=== PATIENT | female | born 1970 | race Caucasian/White ===

== ENCOUNTER → 2018-03-30 10:42 | Outpatient (CLI) | payer OTHER, SELFPAY ==
--- NOTE | 2018-03-30 | OV.WND_ITS ---
Progress Note Details Patient Name: Marcela Zamorano Patient Number: [id number] PatientPatientDate: 03/30/2018 Clinician: Lila Forman Physician / Sample Display Preparer: Osmany Virk SUBJECTIVE Chief Complaint This information was obtained from the patient Allergies MSG, eggplant HPI This information was obtained from the patient 03/30/18. Seen by Dr. Virk. The patient's new to our clinic and presents with a non-healing left lower leg wound that she states started without trauma and subsequently became infected and increased in size. She feels it's been improving however since starting on dicloxacillin but notes there's still some pain. Family History This information was obtained from the patient Diabetes - Maternal Grandparents, Heart Disease - Father, Hypertension - Father , Mental Illness - Paternal Grandparents, Stroke - Maternal Grandparents, Father, Paternal Grandparents Social History This information was obtained from the patient Alcohol Use - Rarely, Children - 2, Financial Concerns, Lives in - private, Marital Status - , Occupation - disabled, Tobacco Use - Cigarrettes 1/4 ppd Past Medical History This information was obtained from the patient Patient has a medical history of: Cardiomyopathy Congestive Heart Failure Lyme disease Neuropathy DJD Surgical History This information was obtained from the patient Patient has a surgical history of: ICD Placed Left meniscus repair Complaints and Symptoms This information was obtained from the patient Patient complains of: General Notes: I have reviewed and concur with the Review of Systems and Past Family Social History documents completed by the clinician, I have reviewed and concur with the Wound Assessment document completed by the clinician Integumentary (Hair/Skin/Nails): Open Sore Prior Wound History: Drainage, Erythema, Pain Patient denies complaints or symptoms related to: Cardiovascular (Central/Peripheral): Intermittent Claudication, Lower extremity (leg) resting pain, Lower extremity (leg) swelling Constitutional Symptoms (General Health): Chills, Fever Hematologic/Lymphatic: Bleeding / Clotting Disorders, Bleeding Tendency Neurological: Loss of Protective Sensation Psychiatric: Memory Loss Respiratory: Shortness of Breath General Notes: Up to date Additional Information Does patient have a history of Cancer? Yes? Complete all questions.: No Medications carvedilol 6.25 mg tablet oral tablet oral once daily amiodarone 200 mg tablet oral tablet oral once daily lisinopril 5 mg tablet oral tablet oral once daily dicloxacillin 250 mg capsule oral capsule oral 4xday OBJECTIVE Constitutional Vital signs reviewed and noted. Well developed. Alert. Clean appearing.. Height/ Length: 68 in (172.72 cm), Weight: 187 lbs (85 kgs), BMI: 28.4, Temperature: 98.9 ?F (37.17 ?C ), Pulse: 84 bpm, Respiratory Rate: 16 breaths/min, Blood Pressure: 139/85 mmHg, Pulse Oximetry: 97 %. Ears, Nose, Mouth, and Throat: No clinically significant hearing loss on informal examination. Cardiovascular: Affected extremity exhibits no peripheral edema or cyanosis, is warm, and is well perfused. Capillary refill is less than 2 seconds. Integumentary (Hair, Skin) Mild periwound erythema with warmth. Refer to appropriate clinician wound documentation for this visit; left lower leg wound extends to subcut with base partially covered with pink granulation, remainder fibrin and slough. Wound #1 Left, Medial Ankle is an acute Full Thickness Cellulitis and has received a status of Not Healed. Initial wound encounter measurements are 1.5cm length x 1.4cm width x 0.1cm depth, with an area of 2.1 sq cm and a volume of 0.21 cubic cm. No tunneling has been noted. No sinus tract has been noted. No undermining has been noted. There is a moderate amount of serous drainage noted which has no odor. The patient reports a wound pain of level 2/10. The wound margin is attached. Wound bed has Yes epithelialization, No eschar, Yes slough, Yes bright red, pink, firm granulation. The periwound skin texture is normal. The periwound skin moisture is normal. The periwound skin color is normal. The temperature of the periwound skin is WNL. Periwound skin presents with s/s of infection. Confirmation Description and Treatment Plan is: Confirmed Local, Systemic Antibiotics Prescribed. Local Pulse is Palpable. Neurological: Cranial nerves grossly intact with symmetric function normal by informal observation.. ASSESSMENT Active Problems ICD-10 (Encounter Diagnosis) S81.802D - Unspecified open wound, left lower leg, subsequent encounter (Encounter Diagnosis) L03.116 - Cellulitis of left lower limb PROCEDURES Wound #1 Wound #1 (Cellulitis) is located on the left, medial ankle. A skin/subcutaneous tissue level surgical debridement with a total area debrided of 2.1 sq cm was performed by Osmany Virk MD. Subcutaneous was removed along with devitalized tissue: slough. The following instrument(s) were used: curette. Pain control was achieved using 4% Lido. A time out was conducted prior to the start of the procedure. A minimal amount of bleeding was controlled with n/a. The procedure was tolerated well with a pain level of 0 throughout and a pain level of 0 following the procedure. Post Debridement Measurements: 1.5cm length x 1.4cm width x 0.2cm depth; with an area of 2.1 sq cm and a volume of 0.42 cubic cm; Additional Information Muscle fascia or bone removed and sent to pathology?: No PLAN Wound Orders: Wound #1 Left, Medial Ankle Anesthetic Topical Xylocaine to wound bed. - In clinic Cleanser Cleanse Wound: - Normal saline in clinic. May use distilled water at home May Shower. - Please avoid getting tap water in wound or on dressing. Cover while in shower Topical Treatments Antibiotic/Antimicrobial Ointment/Cream. - Gentamicin ointment. Dressings Primary dressing: - Bordered foam Change Dressing: - Every other day Additional Orders: Follow-Up Appointments Return Appointment: - - One week Other information: If you develop fever, chills, increased pain, drainage, redness or swelling please call our office. If after hours, respond to the ER. Should you experience any significant changes in your wound(s) or have any questions regarding your home care instructions please contact the wound center @ [phone]. If after hours, contact your primary care physician or go to the hospital emergency room. Scribing Attestation I attest, as the nurse, that I scribed these orders for the physician. Laboratory: Culture Wound I've reviewed the clinician's documentation and agree with the evaluation and plan as written. In addition the patient's wound demonstrates evidence of non-viable devitalized tissue which will continue to benefit from sharp debridement to help promote granulation and expedite healing. Also, I've cultured the wound and will adjust antibiotics pending the results due so some persistent periwound cellulitis. Electronic Signature(s) Signed By: Date: Osmany Virk MD 03/30/2018 13:04:12 Entered By: Osmany Virk on 03/30/2018 12:25:59
== END ==
PROVIDERS: PCP Nurse Practitioner Family; Referring Provider Nurse Practitioner Family; Visit Provider Internal Medicine
DX: L03.116 Cellulitis of left lower limb (principal); L97.322 Non-pressure chronic ulcer of left ankle with fat layer exposed
CPT/HCPCS: 11042; 87070; 87075; 87205; 99213

== ENCOUNTER → 2018-04-06 10:03 | Outpatient (CLI) | payer OTHER, SELFPAY | PROVIDERS: PCP Nurse Practitioner Family; Visit Provider Internal Medicine | DX: L97.322 Non-pressure chronic ulcer of left ankle with fat layer exposed (principal); M65.072 Abscess of tendon sheath, left ankle and foot | CPT/HCPCS: 11042 ==

== ENCOUNTER → 2018-04-12 14:15 | Outpatient (CLI) | payer OTHER, SELFPAY ==
--- NOTE | 2018-04-12 | OV.WND_ITS ---
Progress Note Details Patient Name: Marcela Zamorano Patient Number: [id number] PatientPatientDate: 04/12/2018 Clinician: Lila Forman Physician / Shoe Salesman: Osmany Virk SUBJECTIVE Chief Complaint This information was obtained from the patient Non-healing wound to left leg Allergies MSG, eggplant HPI This information was obtained from the patient 04/12/18. Seen by Dr. Virk. The patient does not report pain or drainage associated with the chronic left lower leg wound since her last visit. 04/06/18. Seen by Dr. Virk. The patient's completed her course of dicloxacillin that was treating and infection associated with the chronic left lower leg wound. She does not report significant pain or drainage from the wound and feels its improving in general. 03/30/18. Seen by Dr. Virk. The patient's new to our clinic and presents with a non-healing left lower leg wound that she states started without trauma and subsequently became infected and increased in size. She feels it's been improving however since starting on dicloxacillin but notes there's still some pain. Past Medical History This information was obtained from the patient Patient has a medical history of: Cardiomyopathy Congestive Heart Failure Lyme disease Neuropathy DJD Complaints and Symptoms This information was obtained from the patient Patient complains of: General Notes: I have reviewed and concur with the Review of Systems and Past Family Social History documents completed by the clinician, I have reviewed and concur with the Wound Assessment document completed by the clinician Integumentary (Hair/Skin/Nails): Open Sore Prior Wound History: Drainage, Erythema, Pain Patient denies complaints or symptoms related to: Cardiovascular (Central/Peripheral): Intermittent Claudication, Lower extremity (leg) resting pain, Lower extremity (leg) swelling Constitutional Symptoms (General Health): Chills, Fever Hematologic/Lymphatic: Bleeding / Clotting Disorders, Bleeding Tendency Neurological: Loss of Protective Sensation Psychiatric: Memory Loss Respiratory: Shortness of Breath Additional Information Does patient have a history of Cancer? Yes? Complete all questions.: No OBJECTIVE Constitutional BP elevated; Low grade fever; Alert and in no distress. Well developed. Alert. Clean appearing.. Height/Length: 68 in (172.72 cm), Weight: 189.5 lbs (86.14 kgs), BMI : 28.8, Temperature: 99 ?F (37.22 ?C), Pulse: 89 bpm, Respiratory Rate: 18 breaths/min, Blood Pressure: 159/93 mmHg, Pulse Oximetry: 100 %. Respiratory: No respiratory distress. Even respirations and without use of accessory muscles.. Integumentary (Hair, Skin) No periwound erythema, warmth, or significant drainage. No periwound rashes appreciated or noted otherwise.. Refer to appropriate clinician wound documentation for this visit. Wound #1 Left, Medial Ankle is an acute Full Thickness Cellulitis and has received an outcome of Healed - no new wound(s). Subsequent wound encounter measurements are 0cm length x 0cm width with no measurable depth, with an area of 0 sq cm . No tunneling has been noted. No sinus tract has been noted. No undermining has been noted. There was no drainage noted. The patient reports a wound pain of level 0/10. The wound margin is attached. Wound bed has Yes epithelialization, No eschar, No slough, No granulation. The periwound skin moisture is normal. The periwound skin color is normal. The periwound skin exhibited: Edema. The temperature of the periwound skin is WNL. Periwound skin does not exhibit signs or symptoms of infection. Local Pulse is Palpable. Neurological: Cranial nerves grossly intact with symmetric function normal by informal observation.. ASSESSMENT Active Problems ICD-10 (Encounter Diagnosis) S81.802D - Unspecified open wound, left lower leg, subsequent encounter PLAN Additional Orders: Follow-Up Appointments Other information: If you develop fever, chills, increased pain, drainage, redness or swelling please call our office. If after hours, respond to the ER. Should you experience any significant changes in your wound(s) or have any questions regarding your home care instructions please contact the wound center @ [phone]. If after hours, contact your primary care physician or go to the hospital emergency room. Discharge from Outpatient Services. - Wound healed Scribing Attestation I attest, as the nurse, that I scribed these orders for the physician. I've reviewed the clinician's documentation and agree with the evaluation and plan as written. In addition the patient's wound demonstrates evidence of non-viable devitalized tissue which will continue to benefit from sharp debridement to help promote granulation and expedite healing. Electronic Signature(s) Signed By: Date: Osmany Virk MD 04/13/2018 07:58:24 Entered By: Osmany Virk on 04/13/2018 06:44:20
== END ==
PROVIDERS: PCP Nurse Practitioner Family; Visit Provider Internal Medicine
DX: Z48.817 Encounter for surgical aftercare following surgery on the skin and subcutaneous tissue (principal)
CPT/HCPCS: 99212

== ENCOUNTER 2021-05-18 15:02 | Emergency (ER) | payer OTHER, MEDICAID, SELFPAY ==
[2021-05-18] VITALS (20 sets, daily range): BP systolic 106–139; BP diastolic 63–93; PULSE 75–88; RESP 17–24; TEMP 36.2; O2SAT 86–100; BMI 30.9
--- NOTE | 2021-05-18 15:38 | DI.RAD.S_ITS ---
PROCEDURE: XR CHEST 2V INDICATIONS: Short of breath TECHNIQUE: 2 views of the chest were acquired. COMPARISON: [facility], CR, XR CHEST 2VW, 05/21/2015, 15:15. FINDINGS: Surgical changes and devices: There is a cardiac pacemaker. Lungs and pleura: Lungs are clear. No pleural effusions or pneumothorax. Mediastinum: Mediastinal contours are normal. Heart size is mildly increased. Bones and chest wall: No suspicious bony abnormalities. Soft tissues appear unremarkable. IMPRESSION: No acute cardiopulmonary disease. Mild cardiomegaly. Dictated by: Harjeet Monterroso M.D. on 05/18/2021 at 16:27 Approved by: Harjeet Monterroso M.D. on 05/18/2021 at 16:27
[2021-05-18 16:49] LABS: Add Manual Diff / Slide Review NO; Basophils Absolute Auto 100 /uL (0-100); Basophils Percent Auto 0.8 % (0-2); Eosinophils Absolute Auto 200 /uL (0-450); Eosinophils Percent Auto 2.4 % (2-4); Hematocrit 37.5 % (36-46); Hemoglobin 12.3 g/dL (12.0-16.0); Lymphocytes Absolute Auto 1700 /uL (1100-4500); Lymphocytes Percent Auto 17.6 % (25-40); Mean Corpuscular HGB Conc 32.8 % (30-36); Mean Corpuscular Hemoglobin 29.5 PG (26-34); Mean Corpuscular Volume 89.9 fL (80-100); Monocytes Absolute Auto 700 /uL (0-900); Monocytes Percent Auto 7.3 % (3-14); Neutrophils Absolute Auto 6900 /uL (1500-7000); Neutrophils Percent Auto 71.9 % (50-75); Platelet Count 273 X10^3/uL (150-400); Red Blood Cell Count 4.17 X10^6/uL (4.0-5.2); Red Cell Distribution Width 15.1 % (11.6-14.8); White Blood Cell Count 9.6 X10^3/uL (4.5-11.0)
[2021-05-18 17:02] LABS: Alanine Aminotransferase 42 IU/L (<35); Albumin 3.5 g/dL (3.5-5.0); Albumin Globulin Ratio 1.2 (1.0-2.8); Alkaline Phosphatase 141 U/L (38-126); Aspartate Aminotransferase 67 IU/L (14-36); BUN Creatinine Ratio 25.9 (6-22); Bilirubin Total 0.5 mg/dL (0.2-1.3); Blood Urea Nitrogen 21 mg/dL (7-17); Calcium 8.7 mg/dL (8.4-10.2); Carbon Dioxide 23 mmol/L (22-32); Chloride 109 mmol/L (98-107); Creatine Kinase 50 U/L (30-135); Estimated Glomerular Filt Rate > 60.0 mL/min (>60); Globulin 2.9 g/dL (1.7-4.1); Glucose 121 mg/dL (70-100); HEMOLYSIS 29 (0-50); Lipase 112 U/L (23-300); Lipase 113 U/L (23-300); Potassium 3.9 mmol/L (3.4-5.1); Sodium 140 mmol/L (137-145); Total Protein 6.4 g/dL (6.3-8.2)
[2021-05-18 17:11] LABS: NT-proBNP (BNP-Adult 18+) 3710 pg/mL (<125)
[2021-05-18 17:15] LABS: Troponin I 0.133 ng/mL (0.01-0.034)
[2021-05-18 17:19] LABS: COVID19 -Nasal RAPID Negative (Negative)
[2021-05-18] MEDS: FUROSEMIDE 100 MG/10 ML VIAL 80 MG IV (17:40)
[2021-05-18] MEDS: ASPIRIN 81 MG CHEW TAB 324 MG PO (18:17)
--- NOTE | 2021-05-18 18:17 | ED_ITS ---
HPI - Chest Pain General Chief Complaint: Shortness of Breath/Dyspnea Stated Complaint: no energy, pain in side Time Seen by Provider: 05/18/21 17:22 Source: patient Mode of arrival: Ambulatory Limitations: no limitations History of Present Illness HPI narrative: This is a 51-year-old female with history of methamphetamine suspected cause of her nonischemic Cardiomyopathy with a biventricular ICD placed in January of 2011. Patient has a history of ventricular fibrillation and had change out of her generator for her AICD in February. Patient states that she has developed epigastric over the last several weeks and some shortness of breath and generalized fatigue. Patient denies any fevers, no cough cold or congestion. She states when she ambulates she has the epigastric/chest pain which radiates all over by her description. She denies any new swelling in her extremities. She states she was supposed to see a primary physician but has had difficulty actually establishing and came here today because of. Patient states she takes lisinopril, carvedilol and Lasix which was started recently. She denies any daily anticoagulation. Patient initially denies any illicit drug use, she admits to THC but does not answer when asked about methamphetamines. Patient states she does use tobacco. She denies regular alcohol use. Patient's most recent EF documented in prior records was 39% in November of 2019. Related Data Home Medications Medication Instructions Recorded Confirmed carvedilol 6.25 mg tablet 6.25 mg PO BID 05/18/21 05/18/21 furosemide 20 mg tablet 20 mg PO DAILY 05/18/21 05/18/21 lisinopril 5 mg tablet 5 mg PO DAILY 05/18/21 05/18/21 Allergies Allergy/AdvReac Type Severity Reaction Status Date / Time No Known Drug Allergies Allergy Verified 05/18/21 15:27 Review of Systems Review of Systems ROS Unobtainable: All systems reviewed & are unremarkable except as noted in HPI and below Patient History Medical History Anxiety Cardiomyopathy Heart failure History of leukocytosis History of ventricular fibrillation Methamphetamine abuse in remission Mild pulmonary hypertension Presence of combination internal cardiac defibrillator (ICD) and pacemaker Syncope Social History Smoking Status: Current every day smoker Smoking Status: Current every day smoker tobacco type: cigarettes Substance Use Type: does not use Exam Narrative Exam Narrative: GENERAL: Alert and oriented, female. Patient is in mild distr ess. Patient does answer questions but is tangential in her speech. HEENT: Head normocephalic, atraumatic, EOMI, pupils reactive, face symmetric, moist mucous membranes NECK: Supple, full range of motion CARDIOVASCULAR: Regular rate and rhythm without murmurs, rubs or gallops. No JVD. No swelling appreciated. RESPIRATORY: Breath sounds equal bilaterally, no wheezes rales or rhonchi. No tachypnea accessory muscle use. ABDOMEN: Soft, nontender. Normoactive bowel sounds all 4 quadrants. No gu arding or rebound, rigidity, no mass : No CVA tenderness EXTREMITIES: Normal range of motion, no clubbing or edema. Neurovascularly intact, NEUROLOGICAL: Cranial nerves II through XII grossly intact. Moving all extremities SKIN: Warm, dry, no petechiae, no rashes. Patient has multiple healing lesions and scabs on her extremities in various locations. Initial Vital Signs Initial Vital Signs: Vital Signs Temperature 97.1 F L 05/18/21 15:27 Pulse Rate 86 05/18/21 15:27 Respiratory Rate 18 05/18/21 15:27 Blood Pressure 116/73 05/18/21 15:27 Pulse Oximetry 100 05/18/21 15:27 Course Orders Ordered: ED Orders 05/18/21 19:55 Partial Thromboplastin Time Stat Discontinued Medications Aspirin (Aspirin 81 Mg Chew Tab) 324 mg PO NOW ONE Stop: 05/18/21 18:10 Last Admin: 05/18/21 18:17 Dose: 324 mg Documented by: DANNY Furosemide (Furosemide 100 Mg/10 Ml Vial) 80 mg IV NOW ONE Stop: 05/18/21 17:28 Last Admin: 05/18/21 17:40 Dose: 80 mg Documented by: DANNY Heparin Sodium (Porcine) (Heparin 5,000 Unit/Ml Vial) 5,000 unit IV NOW ONE Stop: 05/18/21 19:45 Last Admin: 05/18/21 20:13 Dose: 5,000 unit Documented by: RAVI Heparin Sodium/Dextrose (Heparin Drip) 25,000 unit in 500 mls @ 22.152 mls/hr IV CONT CHRIS; Protocol Last Titration: 05/18/21 22:16 Dose: 0 units/kg/hr, 0 mls/hr Documented by: Admin: 05/18/21 20:12 Dose: 12 units/kg/hr, 22.152 mls/hr Documented by: RAVI Consultations Consultation #1: [facility], Dr. Christie [facility]. Case discussed. Patient's troponins and BNP are both elevated. Patient has had aspirin and Lasix. Does feel appropriate to start heparin drip and they accept for transfer. Vital Signs Vital signs: Vital Signs - 8 hr 05/18/21 21:00 05/18/21 21:01 05/18/21 21:30 Pulse Rate 79 81 83 Respiratory Rate 22 22 Blood Pressure 129/91 H Pulse Oximetry 97 96 98 05/18/21 21:31 05/18/21 22:00 Pulse Rate 88 77 Respiratory Rate 23 21 Blood Pressure 112/63 Pulse Oximetry 97 100 MDM - Chest Pain Lab Data Result diagrams: 05/18/21 16:30 05/18/21 16:30 Labs: Lab Results 05/18/21 05/18/21 05/18/21 Range/Units 16:30 16:30 16:30 WBC 9.6 (4.5-11.0) X10^3/uL RBC 4.17 (4.0-5.2) X10^6/uL Hgb 12.3 (12.0-16.0) g/dL Hct 37.5 (36-46) % MCV 89.9 (80-100) fL MCH 29.5 (26-34) PG MCHC 32.8 (30-36) % RDW 15.1 H (11.6-14.8) % Plt Count 273 (150-400) X10^3/uL Neut % (Auto) 71.9 (50-75) % Lymph % (Auto) 17.6 L (25-40) % Fleming % (Auto) 7.3 (3-14) % Eos % (Auto) 2.4 (2-4) % Baso % (Auto) 0.8 (0-2) % Neut # (Auto) 6900 (3378-5528) /uL Lymph # (Auto) 1700 (1971-0821) /uL Fleming # (Auto) 700 (0-900) /uL Eos # (Auto) 200 (0-450) /uL Baso # (Auto) 100 (0-100) /uL APTT (26.4-36.2) SECONDS Sodium 140 (137-145) mmol/L Potassium 3.9 (3.4-5.1) mmol/L Chloride 109 H (98-107) mmol/L Carbon Dioxide 23 (22-32) mmol/L BUN 21 H (7-17) mg/dL Creatinine 0.81 (0.52-1.04) mg/dL Estimated GFR > 60.0 (>60) mL/min BUN/Creatinine Ratio 25.9 H (6-22) Glucose 121 H (70-100) mg/dL Calcium 8.7 (8.4-10.2) mg/dL Magnesium 2.0 (1.6-2.3) mg/dL Total Bilirubin 0.5 (0.2-1.3) mg/dL AST 67 H (14-36) IU/L ALT 42 H (<35) IU/L Alkaline Phosphatase 141 H (38-126) U/L Total Creatine Kinase 50 (30-135) U/L CK-MB (CK-2) TNP CK-MB (CK-2) Rel Index TNP Troponin I 0.133 H* (0.01-0.034) ng/mL NT-Pro-B Natriuret Pep (<125) pg/mL Total Protein 6.4 (6.3-8.2) g/dL Albumin 3.5 (3.5-5.0) g/dL Globulin 2.9 (1.7-4.1) g/dL Albumin/Globulin Ratio 1.2 (1.0-2.8) Lipase 113 112 (23-300) U/L Serum , Qual (Negative) Urine Color Urine Appearance Urine pH (4.5-8.0) Ur Specific [place] (1.000-1.035) Urine Protein (Negative) Urine Glucose (UA) (Negative) g/dL Urine Ketones (NEGATIVE) Urine Occult Blood (Negative) Urine Nitrate (Negative) Urine Bilirubin (NEGATIVE) Urine Urobilinogen (0.2) E.U./dL Ur Leukocyte Esterase (NEGATIVE) Urine RBC (0-5/HPF) Urine WBC (0-5/HPF) Ur Squamous Epith Cells (0-5/HPF) Urine Bacteria (None) Ur Culture Indicated? U Opiates 300ng/mL cut (Negative) Ur Oxycodone Screen (Negative) Urine Methadone Screen (Negative) Ur Barbiturates Screen (Negative) U Tricyclic Antidepress (Negative) Ur Phencyclidine Scrn (Negative) Ur Amphetamines Screen (Negative) U Methamphetamines Scrn (Negative) Ur MDMA Scrn (Ecstasy) (Negative) U Benzodiazepines Scrn (Negative) Urine Cocaine Screen (Negative) U Marijuana (THC) Screen (Negative) Ethyl Alcohol ( - 10) mg/dL SARS-CoV-2 (PCR) (Negative) 05/18/21 05/18/21 05/18/21 Range/Units 16:30 16:30 16:30 WBC (4.5-11.0) X10^3/uL RBC (4.0-5.2) X10^6/uL Hgb (12.0-16.0) g/dL Hct (36-46) % MCV (80-100) fL MCH (26-34) PG MCHC (30-36) % RDW (11.6-14.8) % Plt Count (150-400) X10^3/uL Neut % (Auto) (50-75) % Lymph % (Auto) (25-40) % Fleming % (Auto) (3-14) % Eos % (Auto) (2-4) % Baso % (Auto) (0-2) % Neut # (Auto) (9259-3823) /uL Lymph # (Auto) (8947-0429) /uL Fleming # (Auto) (0-900) /uL Eos # (Auto) (0-450) /uL Baso # (Auto) (0-100) /uL APTT (26.4-36.2) SECONDS Sodium (137-145) mmol/L Potassium (3.4-5.1) mmol/L Chloride (98-107) mmol/L Carbon Dioxide (22-32) mmol/L BUN (7-17) mg/dL Creatinine (0.52-1.04) mg/dL Estimated GFR (>60) mL/min BUN/Creatinine Ratio (6-22) Glucose (70-100) mg/dL Calcium (8.4-10.2) mg/dL Magnesium (1.6-2.3) mg/dL Total Bilirubin (0.2-1.3) mg/dL AST (14-36) IU/L ALT (<35) IU/L Alkaline Phosphatase (38-126) U/L Total Creatine Kinase (30-135) U/L CK-MB (CK-2) CK-MB (CK-2) Rel Index Troponin I (0.01-0.034) ng/mL NT-Pro-B Natriuret Pep 3710 H (<125) pg/mL Total Protein (6.3-8.2) g/dL Albumin (3.5-5.0) g/dL Globulin (1.7-4.1) g/dL Albumin/Globulin Ratio (1.0-2.8) Lipase (23-300) U/L Serum , Qual Negative (Negative) Urine Color Urine Appearance Urine pH (4.5-8.0) Ur Specific [place] (1.000-1.035) Urine Protein (Negative) Urine Glucose (UA) (Negative) g/dL Urine Ketones (NEGATIVE) Urine Occult Blood (Negative) Urine Nitrate (Negative) Urine Bilirubin (NEGATIVE) Urine Urobilinogen (0.2) E.U./dL Ur Leukocyte Esterase (NEGATIVE) Urine RBC (0-5/HPF) Urine WBC (0-5/HPF) Ur Squamous Epith Cells (0-5/HPF) Urine Bacteria (None) Ur Culture Indicated? U Opiates 300ng/mL cut (Negative) Ur Oxycodone Screen (Negative) Urine Methadone Screen (Negative) Ur Barbiturates Screen (Negative) U Tricyclic Antidepress (Negative) Ur Phencyclidine Scrn (Negative) Ur Amphetamines Screen (Negative) U Methamphetamines Scrn (Negative) Ur MDMA Scrn (Ecstasy) (Negative) U Benzodiazepines Scrn (Negative) Urine Cocaine Screen (Negative) U Marijuana (THC) Screen (Negative) Ethyl Alcohol < 10 ( - 10) mg/dL SARS-CoV-2 (PCR) (Negative) 05/18/21 05/18/21 05/18/21 Range/Units 16:59 18:18 18:18 WBC (4.5-11.0) X10^3/uL RBC (4.0-5.2) X10^6/uL Hgb (12.0-16.0) g/dL Hct (36-46) % MCV (80-100) fL MCH (26-34) PG MCHC (30-36) % RDW (11.6-14.8) % Plt Count (150-400) X10^3/uL Neut % (Auto) (50-75) % Lymph % (Auto) (25-40) % Fleming % (Auto) (3-14) % Eos % (Auto) (2-4) % Baso % (Auto) (0-2) % Neut # (Auto) (1798-6972) /uL Lymph # (Auto) (6590-5295) /uL Fleming # (Auto) (0-900) /uL Eos # (Auto) (0-450) /uL Baso # (Auto) (0-100) /uL APTT (26.4-36.2) SECONDS Sodium (137-145) mmol/L Potassium (3.4-5.1) mmol/L Chloride (98-107) mmol/L Carbon Dioxide (22-32) mmol/L BUN (7-17) mg/dL Creatinine (0.52-1.04) mg/dL Estimated GFR (>60) mL/min BUN/Creatinine Ratio (6-22) Glucose (70-100) mg/dL Calcium (8.4-10.2) mg/dL Magnesium (1.6-2.3) mg/dL Total Bilirubin (0.2-1.3) mg/dL AST (14-36) IU/L ALT (<35) IU/L Alkaline Phosphatase (38-126) U/L Total Creatine Kinase (30-135) U/L CK-MB (CK-2) CK-MB (CK-2) Rel Index Troponin I (0.01-0.034) ng/mL NT-Pro-B Natriuret Pep (<125) pg/mL Total Protein (6.3-8.2) g/dL Albumin (3.5-5.0) g/dL Globulin (1.7-4.1) g/dL Albumin/Globulin Ratio (1.0-2.8) Lipase (23-300) U/L Serum , Qual (Negative) Urine Color Yellow Urine Appearance Clear Urine pH 7.0 (4.5-8.0) Ur Specific [place] 1.010 (1.000-1.035) Urine Protein Negative (Negative) Urine Glucose (UA) Negative (Negative) g/dL Urine Ketones Negative (NEGATIVE) Urine Occult Blood Negative (Negative) Urine Nitrate Negative (Negative) Urine Bilirubin Negative (NEGATIVE) Urine Urobilinogen 0.2 (0.2) E.U./dL Ur Leukocyte Esterase Negative (NEGATIVE) Urine RBC 0-1/hpf (0-5/HPF) Urine WBC 0-1/hpf (0-5/HPF) Ur Squamous Epith Cells 0-1 /hpf (0-5/HPF) Urine Bacteria None seen (None) Ur Culture Indicated? Cult not indicated U Opiates 300ng/mL cut Negative (Negative) Ur Oxycodone Screen Negative (Negative) Urine Methadone Screen Negative (Negative) Ur Barbiturates Screen Negative (Negative) U Tricyclic Antidepress Negative (Negative) Ur Phencyclidine Scrn Negative (Negative) Ur Amphetamines Screen Positive H (Negative) U Methamphetamines Scrn Positive H (Negative) Ur MDMA Scrn (Ecstasy) Negative (Negative) U Benzodiazepines Scrn Negative (Negative) Urine Cocaine Screen Negative (Negative) U Marijuana (THC) Screen Negative (Negative) Ethyl Alcohol ( - 10) mg/dL SARS-CoV-2 (PCR) Negative (Negative) 05/18/21 05/18/21 Range/Units 18:45 19:55 WBC (4.5-11.0) X10^3/uL RBC (4.0-5.2) X10^6/uL Hgb (12.0-16.0) g/dL Hct (36-46) % MCV (80-100) fL MCH (26-34) PG MCHC (30-36) % RDW (11.6-14.8) % Plt Count (150-400) X10^3/uL Neut % (Auto) (50-75) % Lymph % (Auto) (25-40) % Fleming % (Auto) (3-14) % Eos % (Auto) (2-4) % Baso % (Auto) (0-2) % Neut # (Auto) (1734-9536) /uL Lymph # (Auto) (3061-1543) /uL Fleming # (Auto) (0-900) /uL Eos # (Auto) (0-450) /uL Baso # (Auto) (0-100) /uL APTT 28 (26.4-36.2) SECONDS Sodium (137-145) mmol/L Potassium (3.4-5.1) mmol/L Chloride (98-107) mmol/L Carbon Dioxide (22-32) mmol/L BUN (7-17) mg/dL Creatinine (0.52-1.04) mg/dL Estimated GFR (>60) mL/min BUN/Creatinine Ratio (6-22) Glucose (70-100) mg/dL Calcium (8.4-10.2) mg/dL Magnesium (1.6-2.3) mg/dL Total Bilirubin (0.2-1.3) mg/dL AST (14-36) IU/L ALT (<35) IU/L Alkaline Phosphatase (38-126) U/L Total Creatine Kinase (30-135) U/L CK-MB (CK-2) CK-MB (CK-2) Rel Index Troponin I 0.130 H* (0.01-0.034) ng/mL NT-Pro-B Natriuret Pep (<125) pg/mL Total Protein (6.3-8.2) g/dL Albumin (3.5-5.0) g/dL Globulin (1.7-4.1) g/dL Albumin/Globulin Ratio (1.0-2.8) Lipase (23-300) U/L Serum , Qual (Negative) Urine Color Urine Appearance Urine pH (4.5-8.0) Ur Specific [place] (1.000-1.035) Urine Protein (Negative) Urine Glucose (UA) (Negative) g/dL Urine Ketones (NEGATIVE) Urine Occult Blood (Negative) Urine Nitrate (Negative) Urine Bilirubin (NEGATIVE) Urine Urobilinogen (0.2) E.U./dL Ur Leukocyte Esterase (NEGATIVE) Urine RBC (0-5/HPF) Urine WBC (0-5/HPF) Ur Squamous Epith Cells (0-5/HPF) Urine Bacteria (None) Ur Culture Indicated? U Opiates 300ng/mL cut (Negative) Ur Oxycodone Screen (Negative) Urine Methadone Screen (Negative) Ur Barbiturates Screen (Negative) U Tricyclic Antidepress (Negative) Ur Phencyclidine Scrn (Negative) Ur Amphetamines Screen (Negative) U Methamphetamines Scrn (Negative) Ur MDMA Scrn (Ecstasy) (Negative) U Benzodiazepines Scrn (Negative) Urine Cocaine Screen (Negative) U Marijuana (THC) Screen (Negative) Ethyl Alcohol ( - 10) mg/dL SARS-CoV-2 (PCR) (Negative) Imaging Data Chest x-ray: Radiologist's Impression: [address] [id number] ReportSigned Patient: Marcela ZamoranoMR#: [id number]: 1970Acct:[id number]/Sex: 51 / FDate of Service: 05/18/21Loc: EDAccession Number: [id number]? ? Procedure: XR chest 2V Ordering Provider: Ramona Ramirez MD PROCEDURE:? XR CHEST 2V ? INDICATIONS:? Short of breath ? TECHNIQUE:? 2 views of the chest were acquired.? ? COMPARISON:? [facility], CR, XR CHEST 2VW, 05/21/2015, 15:15. ? FINDINGS:? ? Surgical changes and devices:? There is a cardiac pacemaker.? ? Lungs and pleura:? Lungs are clear.? No pleural effusions or pneumothorax.? ? Mediastinum:? Mediastinal contours are normal.? Heart size is mildly increased.? ? Bones and chest wall:? No suspicious bony abnormalities.? Soft tissues appear unremarkable.? ? IMPRESSION:? No acute cardiopulmonary disease.? Mild cardiomegaly. ? ? Dictated by: Harjeet Monterroso M.D. on 05/18/2021 at 16:27? ?? Approved by: Harjeet Monterroso M.D. on 05/18/2021 at 16:27?? ECG Data Attestation: I personally reviewed and interpreted this ECG as follows: Prior ECG tracings: not available for review Interpretation: Ventricularly paced rhythm. Rate 81 NM 156. it is atrial sensed. QRS of 138 QTC is 606. No priors for comparison. MDM Narrative Medical decision making narrative: This is a 51-year-old female with known nonischemic cardiomyopathy with AICD. Patient has had shortness of breath, chest pain at times but not active at the moment and generalized fatigue. Patient is unclear about her last methamphetamine use which he has used intermittently in the past but is positive today on her rapid drug screen. Patient's vitals have been stable. She has positive troponin with no acute EKG changes but paced rhythm. Repeat troponin is stable. Aspirin, Lasix was given as she does have an elevated BNP although chest x-ray somewhat reassuring and on exam patient has some faint crackles. Heparin drip was initiated and patient was accepted for transfer to [facility]. Critical Care Time Critical Care Time Critical Care Time: Yes Total Critical Care Time: 45 Attestation: The high probability of a clinically significant, sudden or life threatening deterioration of the [45] system(s) required my full and direct attention, intervention and personal management. The aggregate critical care time was [] minutes. This time is in addition to time spent performing reported procedures but includes the following: [x] Data Review and interpretation [x] Patient assessment and monitoring of vital signs [x] Documentation [x] Medication orders and management Discharge Plan Departure Patient Disposition: [facility] Clinical Impression: Non-ST elevation RI (NSTEMI), CHF (congestive heart failure), History of cardiomyopathy Prescriptions: No Action carvedilol 6.25 mg tablet 6.25 mg PO BID RF: 0 lisinopril 5 mg tablet 5 mg PO DAILY RF: 0 furosemide 20 mg tablet 20 mg PO DAILY RF: 0 Referrals: Mireille Trinh ARNP [Primary Care Provider] -
[2021-05-18 18:22] LABS: Ethanol (ETOH) < 10 mg/dL; Pregnancy Test Serum,Qual Negative (Negative)
[2021-05-18 18:24] LABS: Bacteria Urine None Seen
[2021-05-18 18:27] LABS: Appearance Urine UA CLEAR; Bilirubin Urine UA NEGATIVE (NEGATIVE); Color Urine UA YELLOW; Glucose Urine UA NEGATIVE (Negative); Ketones Urine UA NEGATIVE (NEGATIVE); Leukocyte Esterase Urine UA NEGATIVE (NEGATIVE); Nitrite Urine UA NEGATIVE (Negative); Occult Blood Urine UA NEGATIVE (Negative); Protein Urine UA NEGATIVE (Negative); Urobilinogen Urine UA 0.2 E.U./dL (0.2)
[2021-05-18 18:30] LABS: UR Morphine/Opiate cutoff 300 Negative (Negative); Ur Creatinine Normal (Normal); Ur Specific Gravity Normal (Normal); Urine Amphetamines Positive (Negative); Urine Barbiturates Negative (Negative); Urine Benzodiazepines Negative (Negative); Urine Cocaine Negative (Negative); Urine MDMA Negative (Negative); Urine Methadone Negative (Negative); Urine Methamphetamines Positive (Negative); Urine Oxycodone Negative (Negative); Urine Phencyclidine Negative (Negative); Urine Tetrahydrocannabinol Negative (Negative); Urine Tricyclic Antidepressant Negative (Negative); Urine pH Normal (Normal)
[2021-05-18 18:35] LABS: Culture Indicated Urine Cult Not Indicated; RBC Urine 0-1/HPF (0-5/HPF); Squamous Epithelial Cell Urine 0-1 /HPF (0-5/HPF); WBC Urine 0-1/HPF (0-5/HPF)
[2021-05-18] MEDS: HEPARIN DRIP 25,000 UNIT/500 ML IV.SOLN 22.152 UNIT IV (20:12)
[2021-05-18] MEDS: HEPARIN 5,000 UNIT/ML VIAL 5000 UNIT IV (20:13)
[2021-05-18 20:14] LABS: PTT Partial Thromboplastin Tim 28 SECONDS (26.4-36.2)
--- NOTE | 2021-05-18 22:43 | PC.NURSE ---
Report given to nurse
== END 2021-05-18 22:18 | disposition short-term general hospital (02) ==
PROVIDERS: Emergency Medicine; Emergency Provider Emergency Medicine; PCP Nurse Practitioner Family
DX: I21.4 Non-ST elevation (NSTEMI) myocardial infarction (principal); I50.9 Heart failure, unspecified; R10.13 Epigastric pain; Z86.79 Personal history of other diseases of the circulatory system
CPT/HCPCS: 36415; 71046; 80053; 80305; 80320; 81001; 82550; 83690; 83735; 83880; 84484; 84703; 85025; 85730; 87635; 93005; 96365; 96366; 96375; 99285; 99291; C9803; J1644; J1940